=== PATIENT | male | born 1995 | race African-American/Black ===

== ENCOUNTER 2016-12-23 10:27 | Emergency (ER) | payer SELFPAY ==
[2016-12-23] MEDS ORDERED: CLONIDINE HCL 0.1 MG TABLET PO ONE (11:03)
--- NOTE | 2016-12-23 11:05 | ER Document Report ---
ED Medical Screen (RME) - General Chief Complaint: Headache Stated Complaint: DIZZINESS/HEADACHE Time Seen by Provider: 12/23/16 11:00 Notes: Patient is complaining of headache for the past 3 days. It is located in the congregational regions bilaterally. This been constant. 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 He called his private doctor who referred him here. Has some slight nausea but no vomiting. Feeling dizzy. No fevers. Patient is HIV positive. TRAVEL OUTSIDE OF THE [place] IN LAST 30 DAYS: No - Related Data Allergies/Adverse Reactions: No Known Allergies Allergy (Verified 12/23/16 10:30) Home Medications: Current Home Medications Elviteg/Lula/Emtric/Tenofo Ala [Genvoya Tablet] 1 tab PO DAILY 12/23/16 [History ] Past Medical History - Past Medical History Cardiac Medical History: Denies: Hx Coronary Artery Disease, Hx Heart Attack, Hx Hypertension Pulmonary Medical History: Denies: Hx Asthma, Hx Bronchitis, Hx COPD, Hx Pneumonia Neurological Medical History: Denies: Hx Cerebrovascular Accident, Hx Seizures Renal/ Medical History: Denies: Hx Peritoneal Dialysis Musculoskeltal Medical History: Denies Hx Arthritis - Immunizations Hx Diphtheria, Pertussis, Tetanus Vaccination: Yes Physical Exam - Vital signs Vitals: Temp Pulse Resp BP Pulse Ox 98.2 F 114 H 18 164/126 H 97 12/23/16 10:30 12/23/16 10:30 12/23/16 10:30 12/23/16 10:30 12/23/16 10:30 Course - Vital Signs Vital signs: Temp Pulse Resp BP Pulse Ox 98.2 F 114 H 18 164/126 H 97 12/23/16 10:30 12/23/16 10:30 12/23/16 10:30 12/23/16 10:30 12/23/16 10:30
[2016-12-23 12:07] LABS: HEMATOCRIT 44.5 % (37.9-51.0); HEMOGLOBIN 14.5 g/dL (13.5-17.0); MEAN CORPUSCULAR HEMOGLOBIN 26.3 pg (27.0-33.4); MEAN CORPUSCULAR HGB CONC 32.5 g/dL (32.0-36.0); MEAN CORPUSCULAR VOLUME 81 fl (80-97); RED CELL DISTRIBUTION WIDTH 13.1 % (11.5-14.0); WHITE BLOOD COUNT 6.7 10^3/uL (4.0-10.5)
[2016-12-23 12:10] LABS: ALANINE AMINOTRANSFERASE 25 U/L (21-72); ALBUMIN 4.2 g/dL (3.5-5.0); ALKALINE PHOSPHATASE 86 U/L (38-126); ANION GAP 15 (5-19); ASPARTATE AMINO TRANSFERASE 34 U/L (17-59); BILIRUBIN,DIRECT 0.3 mg/dL (0.0-0.4); BILIRUBIN,TOTAL 0.7 mg/dL (0.2-1.3); BLOOD UREA NITROGEN 6 mg/dL (7-20); CALCIUM 9.6 mg/dL (8.4-10.2); CARBON DIOXIDE 25 mmol/L (22-30); CHLORIDE 104 mmol/L (98-107); GLUCOSE 105 mg/dL (75-110); SODIUM 143.7 mmol/L (137-145); TOTAL PROTEIN 8.2 g/dL (6.3-8.2)
[2016-12-23 13:36] LABS: BASOPHILS % (MANUAL) 0 % (0-2); EOSINOPHILS % (MANUAL) 4 % (0-6); HYPOCHROMASIA SLIGHT; LYMPHOCYTES % (MANUAL) 47 % (13-45); POLYCHROMASIA SLIGHT; TOTAL CELLS COUNTED 100
--- NOTE | 2016-12-23 13:59 | ER Document Report ---
ED General - General Chief Complaint: Headache Stated Complaint: DIZZINESS/HEADACHE Time Seen by Provider: 12/23/16 11:00 Mode of Arrival: Ambulatory Information source: Patient Notes: Emergency department with complaints of headache for the past 3 days. He reports temporal headache bilateral. He denies trauma. 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 He also reports he took his blood pressure pharmacy and noted it was very high. He reports some nausea but no vomiting reports feeling dizzy sometimes when he stands up quickly. Denies fever and diarrhea. He felt much better since the medication we gave him by the [facility]. TRAVEL OUTSIDE OF THE [place] IN LAST 30 DAYS: No - HPI Onset: Other - 3 DAYS Onset/Duration: Persistent Quality of pain: Achy Severity: Severe Pain Level: 4 Associated symptoms: None Exacerbated by: Denies Relieved by: Denies - Related Data Allergies/Adverse Reactions: No Known Allergies Allergy (Verified 12/23/16 10:30) Home Medications: Current Home Medications Elviteg/Lula/Emtric/Tenofo Ala [Genvoya Tablet] 1 tab PO DAILY 12/23/16 [History ] Past Medical History - General Information source: Patient - Social History Smoking Status: Former Smoker - QUIT 3 MONTHS AGO Chew tobacco use (# tins/day): No Frequency of alcohol use: Social Drug Abuse: Marijuana Occupation: Call center Lives with: Family Family History: Reviewed & Not Pertinent Patient has suicidal ideation: No Patient has homicidal ideation: No - Past Medical History Cardiac Medical History: Denies: Hx Coronary Artery Disease, Hx Heart Attack, Hx Hypertension Pulmonary Medical History: Denies: Hx Asthma, Hx Bronchitis, Hx COPD, Hx Pneumonia Neurological Medical History: Denies: Hx Cerebrovascular Accident, Hx Seizures Renal/ Medical History: Denies: Hx Peritoneal Dialysis Musculoskeltal Medical History: Denies Hx Arthritis Surgical Hx: Negative - Immunizations Hx Diphtheria, Pertussis, Tetanus Vaccination: Yes Review of Systems - Review of Systems Notes: Review HPI for review of systems., All other systems negative Physical Exam - Vital signs Vitals: Temp Pulse Resp BP Pulse Ox 98.2 F 114 H 18 164/126 H 97 12/23/16 10:30 12/23/16 10:30 12/23/16 10:30 12/23/16 10:30 12/23/16 10:30 - Notes Notes: PHYSICAL EXAMINATION: GENERAL: Well-appearing and in no acute distress smiles easily HEAD: Atraumatic, normocephalic. EYES: Pupils equal round and reactive to light, extraocular movements intact, sclera anicteric, conjunctiva are normal. ENT: nares patent, oropharynx clear without exudates. Moist mucous membranes. NECK: Normal range of motion, supple without lymphadenopathy LUNGS: CTAB and equal. No wheezes rales or rhonchi. HEART: Regular rate and rhythm without murmurs ABDOMEN: Soft, no tenderness. No guarding, no rebound EXTREMITIES: Normal range of motion, no pitting edema. No cyanosis. NEUROLOGICAL: Cranial nerves grossly intact. Normal sensory/motor exams. good coordinator of online programs, no weakness, no obvious neuro deficits, smile equal PSYCH: Normal mood, normal affect. SKIN: Warm, Dry, normal turgor, no rashes or lesions noted Course - Re-evaluation Re-evalutation: 12/23/16 13:59 Dr. Hadley, per [facility] guidelines agree with plan to discharge no prescriptions, good he was instructed on the importance of follow-up with his primary care provider next week as scheduled. He was also instructed on modifying his diet monitoring his blood pressure. He verbalized understanding to all instructions. - Vital Signs Vital signs: Temp Pulse Resp BP Pulse Ox 97.5 F 81 16 151/96 H 96 12/23/16 14:22 12/23/16 14:22 12/23/16 14:22 12/23/16 14:22 12/23/16 14:22 - Laboratory Result Diagrams: 12/23/16 11:10 12/23/16 11:10 Laboratory results interpreted by me: 12/23/16 12/23/16 11:10 11:10 MCH 26.3 L Seg Neuts % (Manual) 33 L Lymphocytes % (Manual) 47 H Monocytes % (Manual) 1 L BUN 6 L Discharge - Discharge Clinical Impression: Dizziness, Elevated blood pressure reading Headache Qualifiers: Headache type: unspecified Headache chronicity pattern: acute headache Intractability: not intractable Qualified Code(s): R51 - Headache Condition: Stable Disposition: HOME, SELF-CARE Instructions: Headache ([facility]), Dizziness ([facility]), High Blood Pressure, Requiring Treatment ([facility]) Additional Instructions: *You have been evaluated for dizziness, headache, elevated blood pressure reading *Monitor your diet, exercise *Follow up with Dr Mandujano as scheduled Tuesday *Return to ED for worsening condition, changes, needs *Return to ED if not better in 24 hours Monitor your blood pressure. Your blood pressure was elevated today. This may be because you were anxious, in pain or because you need medication. It is important to follow up with your primary care provider for full evaluation. Forms: Elevated Blood Pressure, Return to Work Referrals: CHEMO MANDUJANO MD [Primary Care Provider] - 12/28/16
[2016-12-23 14:27] VITALS: BP 151/96
[2016-12-24 19:58] LABS: PATH REVIEW PATHOLOGIST REVIEWED
== END 2016-12-23 14:22 | disposition home or self-care (01) ==
LOC: ER 10:27
DX: R51 Headache (principal); R11.0 Nausea; R42 Dizziness and giddiness; R03.0 Elevated blood-pressure reading, without diagnosis of hypertension; Z87.891 Personal history of nicotine dependence
CPT/HCPCS: 36415; 70450; 80053; 85025; 99284

== ENCOUNTER 2017-11-21 21:33 | Emergency (ER) | payer SELFPAY ==
[2017-11-21] MEDS ORDERED: BUTALB/ACETAMINOPHEN/CAFFEINE 1 TAB EACH PO ONE (23:24)
[2017-11-21] MEDS ORDERED: DIPHENHYDRAMINE HCL 25 MG CAPSULE PO ONE (23:25)
--- NOTE | 2017-11-22 00:18 | ER Document Report ---
HPI - HPI Pain Level: 5 Notes: Patient is a 22-year-old male who presents to emergency department with complaints of headache 4 days. Patient states that the headache came on gradually and is in the frontal area. Patient reports he has taken Motrin Tylenol and Mucinex with minimal relief. Patient denies any nasal congestion but states that he does feel like he is stuffed up. Patient does report having a history of headaches intermittently but denies history of migraines. Patient reports month past medical history of hypertension and HIV, denies any surgical history. Patient denies any use of tobacco, reports occasional alcohol use and reports occasional marijuana use. - EENT EENT: REPORTS: Eye problems - PAIN FROM HEADACHE - NEURO Neurology: REPORTS: Headache Past Medical History - General Information source: Patient - Social History Smoking Status: Unknown if Ever Smoked Frequency of alcohol use: None Drug Abuse: Marijuana Family History: Reviewed & Not Pertinent Patient has suicidal ideation: No Patient has homicidal ideation: No - Past Medical History Cardiac Medical History: Reports: None Denies: Hx Coronary Artery Disease, Hx Heart Attack, Hx Hypertension Pulmonary Medical History: Reports: None Denies: Hx Asthma, Hx Bronchitis, Hx COPD, Hx Pneumonia EENT Medical History: Reports: None Neurological Medical History: Reports: None. Denies: Hx Cerebrovascular Accident, Hx Seizures Endocrine Medical History: Reports: None Renal/ Medical History: Reports: None. Denies: Hx Peritoneal Dialysis Malignancy Medical History: Reports None GI Medical History: Reports: None Musculoskeltal Medical History: Reports None, Denies Hx Arthritis Skin Medical History: Reports None Psychiatric Medical History: Reports: None Traumatic Medical History: Reports: None Infectious Medical History: Reports: None Surgical Hx: Negative - Immunizations Hx Diphtheria, Pertussis, Tetanus Vaccination: Yes Vertical Provider Document - INFECTION CONTROL TRAVEL OUTSIDE OF THE [place] IN LAST 30 DAYS: No - HEENT HEENT: Atraumatic - NECK Neck: Normal Inspection - RESPIRATORY Respiratory: Breath Sounds Normal - CARDIOVASCULAR Cardiovascular: Regular Rate Pulses: Normal: Radial - GI/ABDOMEN Gastrointestinal: Abdomen Soft - REPRODUCTIVE Male Genitalia: Normal Inspection - BACK Back: Normal Inspection - MUSCULOSKELETAL/EXTREMETIES Musculoskeletal/Extremeties: FROM, Non-Tender - NEURO Level of Consciousness: Awake, Alert - DERM Integumentary: Warm, Dry Course - Re-evaluation Re-evalutation: Patient reports significant relief of headache after being medicated Benadryl and Fioricet and is laughing and talking with his family members at the bedside. Patient will be started on Flonase for his constant nasal congestion and pressure and will also be given a prescription for Fioricet to use as needed. Patient encouraged to follow-up with his primary care doctor in the next 5-7 days or sooner if his symptoms persist. Patient given return precautions to the emergency department and patient verbalizes understanding of same. Discharge - Discharge Clinical Impression: Headache Qualifiers: Headache type: unspecified Headache chronicity pattern: episodic headache Intractability: not intractable Qualified Code(s): R51 - Headache Condition: Stable Disposition: HOME, SELF-CARE Additional Instructions: Headache The physician does not feel that the headache you are experiencing has a serious underlying cause. Most headaches are due to emotional stress, with resultant muscle tension (tension headache). Occasionally, headaches are secondary to changes in the blood vessels of the scalp (vascular headache and migraine headache). Sometimes, a headache is the first symptom of another developing illness, such as a viral infection. You have no evidence of stroke, bleeding, meningitis, or other serious cause of your headache. The treatment of headaches varies with the severity and cause of the pain. Not all headaches need pain shots. In fact, there is evidence that using narcotics for headaches may make them worse in the long run. The physician will determine the therapy that's in your best interest. If you develop a fever, if the headache is different from any you've previously experienced, or if the headache progressively worsens, then call your physician at once or go to the emergency room. Prescriptions: Butalb/Acetaminophen/Caffeine [Fioricet (50-325-40 mg) Tablet] 1 - 2 tab PO Q4HP PRN #30 tab PRN Reason: Fluticasone Propionate [Flonase Nasal Quinn 50 Mcg/Quinn 16 gm] 1 spray NASL Q12 #1 inhaler Referrals: CHEMO MANDUJANO MD [Primary Care Provider] - Follow up as needed
[2017-11-22 00:30] VITALS: BP 149/87
== END 2017-11-22 00:28 | disposition home or self-care (01) ==
LOC: ER 21:33
DX: R51 Headache (principal)
CPT/HCPCS: 99283; J3490

== ENCOUNTER 2018-08-02 13:49 | Emergency (ER) | payer SELFPAY ==
--- NOTE | 2018-08-02 15:37 | ER Document Report ---
HPI - HPI Patient complains to provider of: Cough, cold symptoms Time Seen by Provider: 08/02/18 15:36 Onset: Other - 1 month Onset/Duration: Persistent Quality of pain: Achy Pain Level: 4 Context: Patient presents complaining of productive cough for the past month. Patient states he has been using [id number] medications without any improvement of his symptoms. Patient states today whenever he coughed he noticed blood in his sputum which prompted his visit today. Patient denies any fever. Patient does report a history of HIV but reports compliance with his medications. Associated Symptoms: Productive cough, Rhinnorhea. denies: Chest pain, Earache, Fever, Sore throat Exacerbated by: Denies Relieved by: Denies Similar symptoms previously: No Recently seen / treated by doctor: No - ROS ROS below otherwise negative: Yes Systems Reviewed and Negative: Yes All other systems reviewed and negative - CONSTITUTIONAL Constitutional: DENIES: Fever, Chills - EENT EENT: REPORTS: Congestion - CARDIOVASCULAR Cardiovascular: DENIES: Chest pain - RESPIRATORY Respiratory: REPORTS: Coughing. 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 with: Family Family History: Reviewed & Not Pertinent Patient has suicidal ideation: No Patient has homicidal ideation: No - Past Medical History Cardiac Medical History: Reports: Hx Hypertension Neurological Medical History: Denies: Hx Cerebrovascular Accident, Hx Seizures Renal/ Medical History: Denies: Hx Peritoneal Dialysis Musculoskeletal Medical History: Denies Hx Arthritis Infectious Medical History: Reports: Hx HIV Surgical Hx: Negative - Immunizations Hx Diphtheria, Pertussis, Tetanus Vaccination: Yes Vertical Provider Document - CONSTITUTIONAL Agree With Documented VS: Yes Exam Limitations: No Limitations General Appearance: WD/WN, No Apparent Distress - INFECTION CONTROL TRAVEL OUTSIDE OF THE [place] IN LAST 30 DAYS: No - HEENT HEENT: Atraumatic, Normal ENT Exam, Normocephalic. negative: Pharyngeal Exudate, Pharyngeal Tenderness, Pharyngeal Erythema, Tympanic Membrane Red, Tympanic Membrane Bulging - NECK Neck: Normal Inspection, Supple. negative: Lymphadenopathy-Left, Lymphadenopathy-Right - RESPIRATORY Respiratory: No Respiratory Distress, Chest Non-Tender, Other - occasional dry cough - CARDIOVASCULAR Cardiovascular: Regular Rate, Regular Rhythm, No Murmur - BACK Back: Normal Inspection - MUSCULOSKELETAL/EXTREMETIES Musculoskeletal/Extremeties: KATI ANAND - NEURO Level of Consciousness: Awake, Alert, Appropriate Motor/Sensory: No Motor Deficit - DERM Integumentary: Warm, Dry, No Rash Course - Re-evaluation Re-evalutation: 08/02/18 16:38 Chest x-ray reviewed, no acute findings noted on x-ray. Consulted with Dr. Mancini given patient's history of HIV. Patient reports no detectable viral load, but states his last viral load had been performed about a year ago. Patient does report compliance with taking his antiviral treatment for HIV. Dr. Mancini recommends starting patient on Bactrim and having him follow-up with his infectious disease doctor for recheck. 08/02/18 16:41 Patient without any wheezing on examination today. Patient states that he has noticed some wheezing occasionally. Will cover with bronchodilator. - Vital Signs Vital signs: Temp Pulse Resp BP Pulse Ox 98.7 F 80 16 154/89 H 95 08/02/18 14:01 08/02/18 14:01 08/02/18 14:01 08/02/18 14:01 08/02/18 14:01 - Diagnostic Test Radiology reviewed: Reports reviewed Discharge - Discharge Clinical Impression: Hemoptysis, Cough, HIV (human immunodeficiency virus infection) Condition: Stable Disposition: HOME, SELF-CARE Instructions: Inhaled Bronchodilators ([facility]), Trimethoprim-Sulfa ([facility]) Additional Instructions: Return immediately for any new or worsening symptoms Followup with your primary care provider, call tomorrow to make a followup appointment Stop smoking Prescriptions: Benzonatate [Tessalon Perle 100 mg Capsule] 100 mg PO Q8HP PRN #20 cap PRN Reason: Albuterol Sulfate [Proair Hfa Inhalation Aerosol 8.5 gm Mdi] 2 puff IH Q4 PRN #1 mdi PRN Reason: Inhaler,Assist Device,Accesory [Optichamber] 1 each MC Q4 PRN #1 each PRN Reason: Sulfamethoxazole/Trimethoprim [Bactrim Ds Tablet] 1 each PO BID #20 tablet Forms: Smoking Cessation Education, Return to Work Referrals: CHEMO MANDUJANO MD [ACTIVE STAFF] - Follow up tomorrow
--- NOTE | 2018-08-02 16:10 | RADIOLOGY REPORT (SQ) ---
EXAM DESCRIPTION: CHEST 2 VIEWS COMPLETED DATE/TIME: 08/02/2018 3:57 pm REASON FOR STUDY: cough COMPARISON: 11/21/2014. EXAM PARAMETERS: NUMBER OF VIEWS: two views TECHNIQUE: Digital Frontal and Lateral radiographic views of the chest acquired. RADIATION DOSE: NA LIMITATIONS: none FINDINGS: LUNGS AND PLEURA: No acute infiltrates or effusions. MEDIASTINUM AND HILAR STRUCTURES: No masses or contour abnormalities. HEART AND VASCULAR STRUCTURES: The heart and pulmonary vasculature are normal. BONES: No acute findings. HARDWARE: None in the chest. OTHER: No other significant finding. IMPRESSION: NO ACUTE DISEASE. TECHNICAL DOCUMENTATION: JOB ID: [id number] 2010 [employer]- All Rights Reserved Reading location - IP/workstation name: [email or web address]
[2018-08-02 16:48] VITALS: BP 148/99
== END 2018-08-02 16:48 | disposition home or self-care (01) ==
LOC: ER 13:49
DX: R04.2 Hemoptysis (principal); B20 Human immunodeficiency virus [HIV] disease; J34.89 Other specified disorders of nose and nasal sinuses; R09.81 Nasal congestion; F17.200 Nicotine dependence, unspecified, uncomplicated; I10 Essential (primary) hypertension
CPT/HCPCS: 71046; 99283

== ENCOUNTER 2020-06-28 17:02 | Emergency (ER) | payer SELFPAY ==
[2020-06-28 17:29] VITALS: BP 150/100
--- NOTE | 2020-06-28 17:49 | ER Document Report ---
ED Medical Screen (RME) - General Chief Complaint: Weakness Stated Complaint: WEAKNESS Time Seen by Provider: 06/28/20 17:39 Notes: Patient is a 24-year-old male who presents emergency department with a chief complaint of numbness and tingling to left side of his body. His symptoms started at 4:00 this morning. States that he felt the left side of his body go numb. He then took his blood pressure medication in the morning. He is current ly on hydrochlorothiazide and lisinopril. States that he continues to have left-sided numbness. Denies any loss of function, but states he feels, "weak." Denies history of HIV. Family history of stroke. Exam: Normal strength and upper and lower extremities. Alert and oriented. I have greeted and performed a rapid initial assessment of this patient. A comprehensive ED assessment and evaluation of the patient, analysis of test results and completion of medical decision making process will be conducted by an additional ED providers. TRAVEL OUTSIDE OF THE [place] IN LAST 30 DAYS: No - Related Data Allergies/Adverse Reactions: No Known Allergies Allergy (Verified 08/02/18 13:50) Past Medical History - Past Medical History Cardiac Medical History: Reports: Hx Hypertension Denies: Hx Coronary Artery Disease, Hx Heart Attack Pulmonary Medical History: Denies: Hx Asthma, Hx Bronchitis, Hx COPD, Hx Pneumonia Neurological Medical History: Denies: Hx Cerebrovascular Accident, Hx Seizures Renal/ Medical History: Denies: Hx Peritoneal Dialysis Musculoskeltal Medical History: Denies Hx Arthritis Infectious Medical History: Reports: Hx HIV - Immunizations Hx Diphtheria, Pertussis, Tetanus Vaccination: Yes Physical Exam - Vital signs Vitals: Temp Pulse Resp BP Pulse Ox 98.3 F 103 H 18 150/100 H 97 06/28/20 17:28 06/28/20 17:28 06/28/20 17:28 06/28/20 17:28 06/28/20 17:28 Course - Vital Signs Vital signs: Temp Pulse Resp BP Pulse Ox 98.3 F 103 H 18 150/100 H 97 06/28/20 17:28 06/28/20 17:28 06/28/20 17:28 06/28/20 17:28 06/28/20 17:28
--- NOTE | 2020-06-28 18:13 | RADIOLOGY REPORT (SQ) ---
EXAM DESCRIPTION: CT HEAD WITHOUT IMAGES COMPLETED DATE/TIME: 06/28/2020 6:02 pm REASON FOR STUDY: numbness of left side of body COMPARISON: 12/23/2016 TECHNIQUE: Axial images acquired through the brain without intravenous contrast. Images reviewed wit h bone, brain and subdural windows. Images stored on PACS. All CT scanners at this facility use dose modulation, iterative reconstruction, and/or weight based d osing when appropriate to reduce radiation dose to as low as reasonably achievable (ALARA). [facility]: Dose Right [facility]: CareDose [facility]: Dose Right [facility]: Teradose 4D [facility]: Smart [employer] RADIATION DOSE: CT Rad equipment meets quality standard of care and radiation dose reduction techniq ues were employed. CTDIvol: 53.2 mGy. DLP: 1097 mGy-cm.. LIMITATIONS: None. FINDINGS: VENTRICLES: Normal size and contour. CEREBRUM: No masses. No hemorrhage. No midline shift. Age appropriate white matter. No evidence for a cute infarction. CEREBELLUM: No masses. No hemorrhage. No alteration of density. No evidence for acute infarction. EXTRA-AXIAL SPACES: No fluid collections. ORBITS AND GLOBE: No intra- or extraconal masses. Normal contour of globe without masses. CALVARIUM: No fracture. PARANASAL SINUSES: No fluid or mucosal thickening. SOFT TISSUES: No mass or hematoma. OTHER: No other significant finding. IMPRESSION: NO ACUTE INTRACRANIAL FINDINGS. EVIDENCE OF ACUTE STROKE: NO. TECHNICAL DOCUMENTATION: JOB ID: [id number] [place]-72 Quality ID # [id number]: Final reports with documentation of one or more dose reduction techniques (e.g., Au tomated exposure control, adjustment of the mA and/or kV according to patient size, use of iterative reconstruction technique) 2010 [employer]- All Rights Reserved Reading location - IP/workstation name: [email or web address]
[2020-06-28 18:32] LABS: ABSOLUTE BASOPHILS # (AUTO) 0.1 10^3/uL (0.0-0.2); ABSOLUTE EOSINOPHILS # (AUTO) 0.2 10^3/uL (0.0-0.6); ABSOLUTE LYMPHOCYTES (AUTO) 3.4 10^3/uL (0.5-4.7); ABSOLUTE MONOCYTES (AUTO) 0.5 10^3/uL (0.1-1.4); BASOPHILS % (AUTO) 0.9 % (0-2); EOSINOPHILS % (AUTO) 1.8 % (0-6); HEMATOCRIT 40.5 % (37.9-51.0); HEMOGLOBIN 13.6 g/dL (13.5-17.0); LYMPHOCYTES % (AUTO) 37.3 % (13-45); MEAN CORPUSCULAR HEMOGLOBIN 24.4 pg (27.0-33.4); MEAN CORPUSCULAR HGB CONC 33.6 g/dL (32.0-36.0); MEAN CORPUSCULAR VOLUME 73 fl (80-97); MONOCYTES % (AUTO) 5.7 % (3-13); PLATELET COUNT 488 10^3/uL (150-450); RED BLOOD COUNT 5.59 10^6/uL (4.35-5.55); RED CELL DISTRIBUTION WIDTH 15.7 % (11.5-14.0); SEGMENTED NEUTROPHILS % (AUTO) 54.3 % (42-78); TOTAL CELLS COUNTED % (AUTO) 100 %; WHITE BLOOD COUNT 9.2 10^3/uL (4.0-10.5)
[2020-06-28 18:36] LABS: PROTHROMBIN TIME 13.4 SEC (11.4-15.4)
[2020-06-28 18:37] LABS: PARTIAL THROMBOPLASTIN TIME 32.3 SEC (23.5-35.8)
--- NOTE | 2020-06-28 18:48 | RADIOLOGY REPORT (SQ) ---
EXAM DESCRIPTION: CHEST SINGLE VIEW IMAGES COMPLETED DATE/TIME: 06/28/2020 6:39 pm REASON FOR STUDY: weakness COMPARISON: 08/02/2018 TECHNIQUE: Single frontal radiographic view of the chest acquired. NUMBER OF VIEWS: One view. LIMITATIONS: None. FINDINGS: LUNGS AND PLEURA: No pneumothorax. No consolidation or pleural effusion. MEDIASTINUM AND HILAR STRUCTURES: Stable. HEART AND VASCULAR STRUCTURES: Stable. BONES: No acute findings. HARDWARE: None in the chest. OTHER: No other significant finding. IMPRESSION: NO ACUTE FINDINGS. TECHNICAL DOCUMENTATION: JOB ID: [id number] [place]-72 2010 [employer]- All Rights Reserved Reading location - IP/workstation name: [email or web address]
[2020-06-28 18:54] LABS: ALBUMIN 4.8 g/dL (3.5-5.0); ALKALINE PHOSPHATASE 111 U/L (38-126); ANION GAP 13 (5-19); ASPARTATE AMINO TRANSFERASE 39 U/L (17-59); BILIRUBIN,DIRECT 0.1 mg/dL (0.0-0.4); BILIRUBIN,TOTAL 0.5 mg/dL (0.2-1.3); BLOOD UREA NITROGEN 11 mg/dL (7-20); CALCIUM 10.1 mg/dL (8.4-10.2); CARBON DIOXIDE 25 mmol/L (22-30); CHLORIDE 98 mmol/L (98-107); GLUCOSE 134 mg/dL (75-110); POTASSIUM 4.4 mmol/L (3.6-5.0); TOTAL PROTEIN 8.7 g/dL (6.3-8.2)
--- NOTE | 2020-06-28 19:46 | EKG REPORT ---
SEVERITY:- NORMAL ECG - SINUS RHYTHM : Confirmed by: Amena Serra MD 28-Jun-2020 19:45:14
--- NOTE | 2020-06-28 21:01 | ER Document Report ---
ED General - General Chief Complaint: Numbness of Arm Stated Complaint: WEAKNESS Time Seen by Provider: 06/28/20 17:39 TRAVEL OUTSIDE OF THE [place] IN LAST 30 DAYS: No - HPI Quality of pain: No pain Severity: None Pain Level: Denies Context: This is a 24-year-old male with a history of hypertension presenting to the emergency department complaining of numbness and tingling mainly in his left hand. Patient states that he was up until about 4:00 this morning and when he tried to lay down he could not get comfortable and change positions to get comfortable. While doing this, the patient noticed sudden onset of left-sided arm and hand numbness and tingling. Patient states he started getting anxious about this and went into his mother's room. He noticed that his heart was beating quickly and that his blood pressure was elevated but does not recall the exact numbers. Patient states he also remembers breathing fast. Patient thinks he was having a anxiety attack in response to the sudden onset of numbness and tingling in his left arm and hand. Patient states he tried to sleep for about an hour after going into his mother's room and when he woke up he still had the same symptoms and the numbness and tingling remained his hand throughout the day today. Eventually he decided to come be seen in the ED and evaluated. Patient denies history of prior CVA, recent trauma to his neck, left shoulder, left upper extremity. Patient denies history of carpal tunnel syndrome. Patient states he does use his computer quite a lot. Patient states he is right-hand dominant. Patient denies history of COVID-19, known exposure to persons positive for COVID-19 or persons under investigation for COVID-19. Patient denies chest pain, shortness of breath, fever, chills, nausea, vomiting. Patient denies history of carpal tunnel syndrome. Associated symptoms: Other - See HPI Exacerbated by: Other - See HPI Relieved by: Other - See HPI Similar symptoms previously: No - Related Data Allergies/Adverse Reactions: No Known Allergies Allergy (Verified 08/02/18 13:50) Past Medical History - General Information source: Patient - Social History Smoking Status: Former Smoker Chew tobacco use (# tins/day): No Frequency of alcohol use: Occasional Drug Abuse: Marijuana Lives with: Family Family History: Reviewed & Not Pertinent Patient has homicidal ideation: No - Past Medical History Cardiac Medical History: Reports: Hx Hypertension Denies: Hx Coronary Artery Disease, Hx Heart Attack Pulmonary Medical History: Denies: Hx Asthma, Hx Bronchitis, Hx COPD, Hx Pneumonia Neurological Medical History: Denies: Hx Cerebrovascular Accident, Hx Seizures Renal/ Medical History: Denies: Hx Peritoneal Dialysis Musculoskeletal Medical History: Denies Hx Arthritis Infectious Medical History: Reports: Hx HIV - Immunizations Hx Diphtheria, Pertussis, Tetanus Vaccination: Yes Review of Systems - Review of Systems Notes: Review of systems as below unless otherwise stated in HPI. CONSTITUTIONAL [No] fever, [No] chills. EYES [No] eye pain. ENT [No] URI symptoms, [No] sore throat, [No] ear pain. CARDIOVASCULAR [No] chest pain, [No] palpitations, [No] edema. RESPIRATORY [No] Cough, [No] SOB, [No] wheezing. GASTROINTESTINAL [No] abdominal pain, [No] nausea, [No] Diarrhea, [No] Vomiting, [No] constipation, [No] melena, [No] rectal bleeding. GENITOURINARY [No] dysuria, [No] urinary frequency, [No] hematuria, [No] urinary urgency MUSCULOSKELETAL [No] Back pain. SKIN [No] Rash. NEUROLOGIC [No] Headache, [No] recent seizures, [No] paralysis,[+] parathesias. ENDOCRINE [No] polyuria. HEMO/LYMPATIC [No] easy brusing PSYCHIATRIC [No] depression. Physical Exam - Vital signs Vitals: Temp Pulse Resp BP Pulse Ox 98.3 F 103 H 18 150/100 H 97 06/28/20 17:28 06/28/20 17:28 06/28/20 17:28 06/28/20 17:28 06/28/20 17:28 - Notes Notes: CONSTITUTIONAL [Vital signs reviewed, Patient appears comfortable, Alert and oriented X 3, Normal stature.] HEAD [Atraumatic, Normocephalic.] EYES [Eyes are normal to inspection, No discharge from eyes, Extraocular muscles intact, Sclera are normal, Conjunctiva are normal.] ENT [External ears normal to inspection, Nose examination normal, Mouth normal to inspection.] NECK [Normal ROM, No jugular venous distention, No meningeal signs, ] RESPIRATORY CHEST [Chest is nontender, Breath sounds normal, No respiratory distress.] CARDIOVASCULAR [RRR, No murmurs, Normal S1 S2, No rub, No gallop.] ABDOMEN [Abdomen is nontender, No pulsatile masses, No other masses, Bowel sounds normal, No distension, No peritoneal signs, No hernias.] BACK [There is no CVA Tenderness, There is no tenderness to palpation, Normal inspection.] UPPER EXTREMITY [Inspection normal, No cyanosis, No clubbing, No edema, LOWER EXTREMITY [Inspection normal, No cyanosis, No clubbing, No edema, No calf tenderness, NEURO [No focal motor deficits, switching clerk strength is normal and equal in both hands, patient states that sensation in his left fingertips feels different than what he describes as normal sensation in his right fingertips on examination, negative Tinel's sign, negative Phalen's sign, speech normal.] SKIN [Skin is warm, Skin is dry, Skin is normal color.] LYMPHATIC [No adenopathy in neck.] PSYCHIATRIC [Normal affect. ] Course - Re-evaluation Re-evalutation: 06/28/20 21:40 Results of ED MSE discussed with patient. When asked if all questions were answered and all concerns were addressed during this visit, patient answered in the affirmative. Emergency signs and symptoms, reasons to return to the ED, follow-up all discussed with patient. - Vital Signs Vital signs: Temp Pulse Resp BP Pulse Ox 98.3 F 103 H 18 150/100 H 97 06/28/20 17:28 06/28/20 17:28 06/28/20 17:28 06/28/20 17:28 06/28/20 17:28 - Laboratory Result Diagrams: 06/28/20 18:14 06/28/20 18:14 Laboratory results interpreted by me: 06/28/20 06/28/20 18:14 18:14 RBC 5.59 H MCV 73 L MCH 24.4 L RDW 15.7 H Plt Count 488 H Sodium 136.1 L Glucose 134 H Total Protein 8.7 H - Diagnostic Test Radiology reviewed: Reports reviewed - EKG Interpretation by Me Additional EKG results interpreted by me: 06/28/20 21:41 EKG dated 06/28/2020 at 1824 hrs. was interpreted by this MD. Findings: Normal sinus rhythm, rate 97, IN interval appears to be within normal limits, P waves proceed QRS complexes, QRS complexes appear within normal limits, QTC is 442, there are no obvious patterns of ST segment elevation, depression or reciprocal changes seen to suggest acute myocardial ischemia or infarction. Impression normal sinus rhythm with nonspecific ST segments. There is no prior EKG available for comparison. Discharge - Discharge Clinical Impression: Paresthesias in left hand, Anxiety as acute reaction to exceptional stress Condition: Stable Disposition: HOME, SELF-CARE Additional Instructions: Return to the Emergency Department without delay if any worse. You have been diagnosed with paresthesias. This is a medical term for numbness and tingling. The numbness and tingling in your left hand is not seem to be related to any serious cause such as a stroke or Covid infection or carpal tunnel syndrome. What I recommend is that you avoid prolonged use of your hands, such as typing on a computer or using a mobile phone and follow-up with your doctor on 06/30/2020 if your symptoms have not improved. HOME CARE INSTRUCTIONS & INFORMATION: Thank you for choosing us for your medical needs. We hope you're satisfied with the care you received. After you leave, you must properly care for your problem and, at the same time, observe its progress. Any condition can change. Some illnesses can change rapidly over hours or days. If your condition worsens, return to the Emergency Department or see your physician promptly. ABOUT YOUR X-RAYS AND EKG'S: If you had an EKG or X-rays taken, they have been read by the Emergency Physician. The X-rays and EKG's will also be read by a Radiologist or Sanding Machine Tender within 24 hours. If discrepancies are noted, you will be notified by telephone. Please be certain the ED has a correct telephone number & address where you can be reached. Also, realize that some fractures or abnormalities do not show up on initial X-rays. If your symptoms continue, see your physician. ABOUT YOUR LABORATORY TEST: If you had laboratory tests, the results have been reviewed by the Emergency Physician. Some test results (for example cultures) may not be available for several days. You will be contacted if any test result shows you need additional treatment. Please be certain the ED has a correct telephone number and address where you can be reached. ABOUT YOUR MEDICATIONS: You will receive instructions on how to take your medicine on the prescription label you receive. Additional information may be provided by the Pharmacy. If you have questions afterwards, call the ED for clarification or further instructions. Some prescribed medications may cause drowsiness. Do not perform tasks such as driving a car or operating machinery without consulting your Pharmacist. If you feel you need a refill of pain medication, your condition will need re-evaluation. Please do not call for a refill of any medication. ABOUT YOUR SIGNATURE: Signature of this document acknowledges to followin. Understanding that you received emergency treatment and that you may be released before al medical problems are known or treated. Please be certain the ED has a correct phone number & address where you can be reached. 2. Acknowledgement that you will arrange for follow-up care as recommended. 3. Authorization for the Emergency Physician to provide information to your follow-up Physician in order to maximize your care. AT ANY TIME, IF YOUR SYMPTOMS CHANGE SIGNIFICANTLY OR WORSEN OR YOU DEVELOP NEW SYMPTOMS, RETURN TO THE EMERGENCY DEPARTMENT IMMEDIATELY FOR RE-EVALUATION. OUR GOAL IS TO PROVIDE EXCELLENT MEDICAL CARE! WE HOPE THAT WE HAVE MET YOUR EXPECTATIONS DURING YOUR EMERGENCY DEPARTMENT VISIT AND THAT YOU FEEL YOU HAVE RECEIVED EXCELLENT CARE!
== END 2020-06-28 22:29 | disposition home or self-care (01) ==
LOC: ER 17:02
DX: R20.0 Anesthesia of skin (principal); F41.9 Anxiety disorder, unspecified; R53.1 Weakness; I10 Essential (primary) hypertension
CPT/HCPCS: 36415; 70450; 71045; 80053; 85025; 85610; 85730; 93005; 93010; 99285